=== PATIENT | male | born 1950 | race Caucasian/White ===

== ENCOUNTER 2020-01-12 15:28 | Inpatient (IN) | payer MEDICARE, OTHER, SELFPAY ==
[2020-01-12] VITALS (10 sets, daily range): BP systolic 93–120; BP diastolic 67–75; PULSE 118–130; RESP 15–26; TEMP 36.3–36.6; O2SAT 94–100; BMI 31.8; BMI 31.9
--- NOTE | 2020-01-12 15:05 | EKG12_ITS ---
Test Reason : ADMISSION Blood Pressure : / mmHG Vent. Rate : 130 BPM Atrial Rate : 138 BPM P-R Int : 000 ms QRS Dur : 108 ms QT Int : 328 ms P-R-T Axes : 000 -45 134 degrees QTc Int : 482 ms Accelerated Junctional rhythm with Premature ventricular complexes or Fusion complexes Left axis deviation Incomplete left bundle branch block Nonspecific T wave abnormality Abnormal ECG Confirmed by SRINI OLIVER, NELLIE ([id number]), department editor ROSENDA AGUERO ([id number] on 01/14/2020 10:32:09 AM Referred By: Laura Fernandez Confirmed By:NELLIE MILLIGAN MD
--- NOTE | 2020-01-12 15:27 | ECHOCS_ITS ---
Reason For Study: CHF Procedure This was a 2D Doppler, Color Flow transthoracic echocardiogram. The study was technically difficult. Contrast injection was performed. Exam performed portable in patient room. Left Ventricle Normal LV size. Small mobile thrombus noted in apex. Left ventricular systolic function is normal. The estimated ejection fraction is 15 %. [place] : Akinetic. There is moderate to severe global hypokinesis of the left ventricle. Right Ventricle Normal RV size. Normal systolic function. Atria The left atrium is moderately enlarged. The right atrium is moderately enlarged. Mitral Valve Normal mitral valve. Mild-Moderate (1-2+) eccentric mitral valve insufficiency. Tricuspid Valve Normal tricuspid valve. Moderate (2+) tricuspid valve insufficiency. Pulmonary artery systolic pressure is 53 mmHg. Moderate pulmonary hypertension. Aortic Valve Trisinus/trileaflet aortic valve. Mild focal aortic valve calcification. Pulmonic Valve Normal pulmonic valve. Great Vessels Moderately dilated aortic root. The pulmonary artery is normal size. The inferior vena cava is dilated. Pericardium/Pleural No pericardial effusion. Medication Diluted definity 4.0ml given slow IV push to enhance endocardial definition. MMode/2D Measurements & Calculations LVIDd: 5.6 cm IVSd: 0.79 cm Ao root diam: 5.0 cm LVIDs: 4.9 cm LVPWd: 0.77 cm RVDd: 4.0 cm FS: 13.0 % LAV(MOD-bp): 102.9 ml LVAd ap4: 52.9 cm2 SV(MOD-sp4): 37.0 ml LAV(MOD-bp) Indexed: 42.3 ml/m2 EDV(MOD-sp4): 228.0 ml LAV(MOD-sp2): 95.8 ml EDV(sp4-el): 240.8 ml LAV(MOD-sp4): 103.5 ml LVAs ap4: 48.5 cm2 ESV(MOD-sp4): 191.0 ml ESV(sp4-el): 205.6 ml EF(MOD-sp4): 16.2 % EF(sp4-el): 14.6 % SV(sp4-el): 35.2 ml LA A4 area: 29.5 cm2 LA dimension(2D): 5.0 cm RA A4 area: 25.6 cm2 Time Measurements MV dec time: 0.11 sec Doppler Measurements & Calculations MV E max dusty: 109.0 cm/sec Ao V2 max: 83.8 cm/sec LV V1 max: 51.1 cm/sec Ao max P.8 mmHg LV V1 max P.1 mmHg TR max dusty: 318.8 cm/sec TR max P.6 mmHg Interpretation Summary Normal LV size. Left ventricular systolic function is normal. [place] : Akinetic. Small mobile thrombus noted in apex. The left atrium is moderately enlarged. Pulmonary artery systolic pressure is 53 mmHg. Moderate pulmonary hypertension. The estimated ejection fraction is 15 %. Contrast injection was performed. Ordering Physician: Laura Fernandez Referring Physician: VERÓNICA WOOTEN Performed By: Norma Burrows, RDDUKE, RVT
--- NOTE | 2020-01-12 15:37 | HP.PCM_ITS ---
History of Present Illness Date of Admission: 01/12/20 Chief Complaint: shortness of breath The patient is a 69 year old M with a PMH of hypertension and diabetes who was admitted as transfer from [facility] with a complaint of shortness of breath for 2 days, with associated orthopnea, PND and LE swelling. He said this was the first time of onset of such symptoms, and he had associated exertional shortness of breath, and nausea, but denied any fever, chills, chest pain, palpitations or dizziness, but admitted to a couple of episodes of diarrhea. He did admit to a cough which was productive of clear sputum, but denied any fever or chills. Review of systems otherwise negative. He went to [facility] where albs done showed sodium of 134, bicarb of 19, and pro BNP of 3980. Troponin was 0.11. D-dimer was elevated so a CTA was done which showed no evidence of PE but showed bilateral large pleural effusions and atelectasis. Rapid COVID screen done was negative. EKG showed sinus tachycardia with junctional rhythm patient has no history of heart disease and has no echo on file. He was given IV Lasix and IV ceftriaxone and azithromycin for presumed pneumonia. He was transferred to [facility]. [] Past Medical History Allergies No Known Allergies Allergy (Verified 09/20/15 10:19) Home Medications: Ambulatory Orders Medication Instructions Recorded Aspirin [Adult Low Dose Aspirin EC] 81 mg PO DAILY 09/20/15 Glimepiride [Amaryl] 2 mg PO DAILY 09/20/15 Lisinopril [Zestril] 5 mg PO DAILY 09/20/15 [place]-3 Fatty Acids [Fish Oil] 300 mg PO DAILY 09/20/15 Simvastatin [Zocor] 40 mg PO QHS 09/20/15 metFORMIN HCl [Glucophage] 1,000 mg PO BIDCM 09/20/15 Surgical History: - - knee replacement Psychiatric History: No pertinent psych hx Lives: Spouse/ Significant Other Smoking Status: Former smoker Alcohol: Occasional Drugs: None - *Family History Maternal History Items: Heart Disease, Hypertension Paternal History Items: Heart Disease, Hypertension Review of Systems Constitutional: Denies: Chills, Fever, Malaise, Weakness, Weight Change Eyes: Denies: Blurred vision HEENT: Denies: Head Aches, Sinus Congestion, Sinus Drainage Cardiovascular: Reports: Edema, Orthopnea, Paroxysmal Noc. Dyspnea. Denies: Chest Pain, Chest Pressure, Chest Tightness, Heaviness, Light Headedness, Palpitations Respiratory: Reports: Cough, Shortness of Breath, Shortness of breath at rest, Shortness of breath upon exertion, Sputum production - clear sputum Gastrointestinal: Denies: Abdominal Pain, Nausea, Vomiting Genitourinary: Denies: Dysuria Musculoskeletal: Denies: Joint Pain, Joint Tenderness Skin: Denies: Rash, Wounds Neurological: Denies: Numbness, Tingling, Focal weakness Psychiatric: Denies: Anxiety, Depression, Homicidal Ideations, Suicidal Ideations Hematologic/ Lymphatic: Denies: Easy Bruising, Easy Bleeding VTE Information - Inpt Only VTE Present on Admission: No VTE Pharm Prophylaxis ordered?: Yes - Physical Exam Vitals/I&O's: Vital Signs Temp Pulse Resp BP Pulse Ox 97.8 F 126 H 16 112/68 97 01/12/20 15:28 01/12/20 15:28 01/12/20 15:28 01/12/20 15:28 01/12/20 15:28 Oxygen Flow Rate (L/min) 2 Oxygen Delivery Method Nasal Cannula Weight: 255 lb 1.6 oz Body Mass Index (BMI) 31.8 General: Alert, Oriented x3, Cooperative, No apparent distress HEENT: Atraumatic, PERRLA, EOMI, Normocephalic Oral: Dry Mucosa Neck: Supple, No JVD, Negative Carotid Bruits Lungs: - - decreased breath sounds bibasally and, no wheezes or crackles. Decreased tactile vocal fremitus bilaterally. Cardiovascular: Normal S1, Normal S2, No murmurs, Tachycardic Abdomen: Bowel Sounds Present, Soft, Non Tender, Non-Distended, No Hepato- splenomegaly Extremities: No clubbing, No cyanosis, Capillary Refill Less than 3 Seconds, - - mild +1 LE edema bilaterally. Skin: No rashes, No breakdown Musculoskeletal: No Tenderness to Palpation of Joints or Extremities Lymphatic: No Cervical, Supraclavicular, or Inguinal Adenopathy Neurological: Cranial nerves II-XII grossly intact, Neuro grossly intact, Motor Exam 5/5 strength throughout Psych/Mental Status: Normal Affect, Appropriate, Alert and oriented to time, place, person, mood and affect Current Medications Sodium Chloride () 10 - 40 ml IV UD PRN PRN Reason: SALINE FLUSH Assessment/Plan 69 y/o admitted with a complaitn of shortness of breath. 1. Acute heart failure, EF unknown * Admit to PCU with telemetry * EKG done on admission showed accelerated junctional tachycardia. * Will check CBC, BMP and check troponins x3. Check BNP * Received IV Lasix 20 mg once in [place]. Will start on IV Lasix 40 mg twice daily. * Monitor intake and output. * Fluid restriction to 1500 cc daily. * 2D echo ordered. * 2. Sinus tachycardia * EKG done showed accelerated junctional tachycardia. * Will start metoprolol to help with tachycardia. The patient is in acute heart failure, I think beta-liz will help slow down the heart rate. * Check TSH and magnesium * 3. Type 2 diabetes mellitus: * Continue glimepiride. * Hold metformin. Check A1c. * Insulin sliding scale. * Accu-Cheks AC at bedtime. 4. Hypertension: on lisinopril 5. Hyperlipidemia: On simvastatin 40 nightly. DVT prophylaxis: Lovenox Inpatient E&M: 48588 Init Hosp L3
[2020-01-12 16:01] LABS: Bedside Glucose 244 mg/dL (70-110)
[2020-01-12 16:06] LABS: Hematocrit 46.3 % (40-54); Hemoglobin 14.7 g/dL (13.0-16.5); Mean Corp Hgb Conc 31.7 g/dL (32-36); Mean Corpuscular Hgb 27.1 pg (27.0-32.0); Mean Corpuscular Volume 85.4 fL (80-94); Mean Platelet Vol. 10.3 fl (6.2-12.0); Platelet Count 432 K/mm3 (150-450); RBC Distribution Width CV 14.1 % (11.6-14.6); RBC Distribution Width SD 43.3 fl (35.1-43.9); Red Blood Count 5.42 M/mm3 (4.6-6.2); White Blood Count 9.1 K/mm3 (4.4-11.0)
--- NOTE | 2020-01-12 16:19 | NURSING ---
called updated admitting dx chf
[2020-01-12 16:22] LABS: Anion Gap 11 (5-15); BUN 41 mg/dL (7-18); BUN/Creat Ratio 26.6 RATIO (10-20); Calcium,Total 8.9 mg/dL (8.5-10.1); Chloride 103 mmol/L (98-107); Creatinine, Serum 1.54 mg/dL (0.70-1.30); EST Glomerular Filtration Rate 48 mL/min (>60); Est Glom Filt Rate - Afr Amer 57 mL/min (>60); Estimated Creatinine Clearance 52.58 ml/min; Glucose 266 mg/dL (74-106); Magnesium 2.4 mg/dL (1.6-2.6); Potassium 5.1 mmol/L (3.5-5.1); Sodium Level 135 mmol/L (136-145)
[2020-01-12] MEDS: Insulin Lispro 100 UNIT/ML INSULN.PEN SC ×2 (16:55→21:57)
[2020-01-12] MEDS: 0.9% Saline Lock 10 ML Syringe IV ×2 (16:55→21:24)
[2020-01-12] MEDS: Furosemide 40 MG/4 ML Vial IV (16:55)
[2020-01-12 17:15] LABS: Hemoglobin A1c 7.6 % (4.2-6.3)
[2020-01-12 18:00] LABS: BNP,B-Type NATRIURETIC PEPTIDE 1007.4 pg/mL (0-100)
--- NOTE | 2020-01-12 18:19 | CON.PCM_ITS ---
Reason for Consult Date of Consultation: 01/12/20 Reason for Consultation: Shortness of breath History of Present Illness: The patient is a 69 year old M with a past medical history significant for hypertension and diabetes mellitus. He was initially admitted to [facility]. He had been short of breath he says for a few weeks but appears to have worsened over the last 2 to 4 days. He denied any fever diaphoresis chills near syncope or syncope and has not had any palpitations. He has had orthopnea as well as pedal edema. He has also had some paroxysmal nocturnal dyspnea. At the outside hospital he was evaluated with natruretic peptide level which was elevated as well as troponin which was mildly elevated. He also had a CTA done which demonstrated bilateral pleural effusions. A rapid COVID test was negative. He was treated with intravenous Lasix as well as ceftriaxone and azithromycin. He was transferred to [facility] for further evaluation and management. At this particular time he says that he is breathing better continues to deny any chest pain. He has had no previous problems with clotting disorders. [] Past Medical History Allergies/Adverse Reactions: Allergies No Known Allergies Allergy (Verified 09/20/15 10:19) Home Medications: Ambulatory Orders Medication Instructions Recorded Aspirin [Adult Low Dose Aspirin EC] 81 mg PO DAILY 09/20/15 Glimepiride [Amaryl] 2 mg PO DAILY 09/20/15 Lisinopril [Zestril] 5 mg PO DAILY 09/20/15 [place]-3 Fatty Acids [Fish Oil] 300 mg PO DAILY 09/20/15 Simvastatin [Zocor] 40 mg PO QHS 09/20/15 metFORMIN HCl [Glucophage] 1,000 mg PO BIDCM 09/20/15 Surgical History: - - knee replacement Psychiatric History: No pertinent psych hx - *Family History Maternal History Items: Heart Disease, Hypertension Paternal History Items: Heart Disease, Hypertension Lives: Spouse/ Significant Other Smoking Status: Former smoker Alcohol: Occasional Drugs: None Review of Systems - Review of Systems General: Reports: Fatigue, Weakness. Denies: Fever, Night Sweats HEENT: Denies: Vision Change Cardiovascular: Reports: Shortness of Breath, Shortness of Breath at Rest, Shortness of Breath with Exertion, Orthopnea, PND, Peripheral Edema. Denies: Chest Discomfort, Palpitations, Lightheadedness, Dizziness, Near Syncope, Syncope Respiratory: Denies: Cough, Sputum Production, Hemoptysis Gastrointestinal: Denies: Hematemesis, Hematochezia, Melena Genitourinary: Denies: Dysuria, Hematuria Muscoloskeletal: Denies: Myalgias Skin: Denies: Rash Neurological: Denies: Dizziness Psychiatric: Denies: Anxiety Endocrine: Denies: Excessive Sweating Hematologic/ Lymphatic: Denies: Anemia Subjectve: Pleasant gentleman in no distress. Mildly tachypneic Objective: Vital Signs Temp Pulse Resp BP Pulse Ox 98 F 129 H 16 103/73 97 01/12/20 17:00 01/12/20 17:00 01/12/20 17:00 01/12/20 17:00 01/12/20 17:00 Oxygen Flow Rate (L/min) 2 Oxygen Delivery Method Nasal Cannula Weight: 255 lb 1.6 oz Body Mass Index (BMI) 31.8 General: Awake, Alert, Oriented x 3 HEENT: PERRL, EOMI, Sclera Non Icteric Oral: Moist Mucosa Neck: Supple, Good ROM, No Lymph Node Enlargement, Positive JVD Lungs: Diminished [place] Bases Cardiovascular: Regular Rhythm, Normal S1, Normal S2, No Rubs, No Gallops Murmur Murmur: Grade 2/6, Holosystolic, [place] Vascular: No Carotid Bruits, Normal Femoral Pulses, Normal Radial Pulses, Normal Dorsalis Pedal Pulse, Normal Posterior Tibial Pulses Abdomen: Bowel Sounds Present, Soft, Non Tender, No HSM, No Organomegaly Extremities: No Cyanosis, No Clubbing, Bilateral Edema +2 Musculoskeletal: No Erythema Skin: No Rashes Lymphatic: No Lymph Node Enlargement Neurological: No Focal Motor or Sensory Deficit Psych/Mental Status: Appropriate 01/12/20 15:52: WBC 9.1, RBC 5.42, Hgb 14.7, Hct 46.3, MCV 85.4, MCH 27.1, MCHC 31.7 L, Plt Count 432, MPV 10.3 01/12/20 15:52: Sodium 135 L, Potassium 5.1, Chloride 103, Carbon Dioxide 21.0, Anion Gap 11, BUN 41 H, Creatinine 1.54 H, Est GFR (MDRD) Af Amer 57 L, Est GFR (MDRD) Non-Af 48 L, BUN/Creatinine Ratio 26.6 H, Glucose 266 H, Calcium 8.9, Magnesium 2.4, Troponin I 0.137 H 01/12/20 15:52: Hemoglobin A1c 7.6 H 01/12/20 15:52: B-Natriuretic Peptide 1007.4 H Rhythm: EKG: Atrial flutter with 2-1 block at 130 bpm ECHO: Severe left ventricular systolic dysfunction with global reduction in ejection fraction estimated to be 15%. Apical thrombus cannot be completely excluded. Left atrial enlargement is present. Assessment/Plan 1. Acute systolic heart failure * Patient presents with shortness of breath, orthopnea, paroxysmal nocturnal dyspnea and laboratory tests confirmatory of the above. His echocardiogram also corroborates this. * Will recommend to continue with IV Lasix * Will start beta-liz with carvedilol 3.125 mg twice a day and titrate upwards * Will add ERIK inhibitor as tolerated * Will eventually need a left heart catheterization to exclude coronary obstruction * The above is likely tachycardia mediated from his cardiac arrhythmias * Would likely benefit from Entresto and spironolactone later on 2. Atrial flutter * Patient appears to have atypical atrial flutter versus atrial tachycardia with block * Will recommend anticoagulation with Lovenox at this time * Patient has an elevated chads score and would need long-term anticoagulation * 3. Hypertension * Continue with ERIK inhibitor and beta-liz as tolerated * 4. Left ventricular systolic dysfunction * Patient has severe low ventricular systolic dysfunction. The above is global with severe apical hypokinesis to akinesis. * A small thrombus is noted in the apex and patient appears to have slow flow with the thrombogenic phenomenon * Will continue with the measures as noted above and would also likely need long-term anticoagulation * Depending on the improvement in the left ventricular systolic function further measures will need to be undertaken such as primary defibrillator implantation after appropriate therapy for at least 90 days. As per guideline directed medical care. * 5. Secondary risk factor modification * Patient will continue with high intensity statin. * * Above discussed with patient and the hospitalist. * * Thank you for allowing me to participate in the care of your patient. Please don't hesitate to call if any issues arise.
[2020-01-12] MEDS: Enoxaparin 100 MG/ML Syringe SC (18:45)
[2020-01-12] MEDS: Carvedilol 3.125 MG TABLET PO (18:45)
[2020-01-12] MEDS: Ondansetron 4 MG/2 ML Vial IV (21:29)
[2020-01-12] MEDS: Atorvastatin Calcium 20 MG Tablet PO (21:58)
[2020-01-12 22:05] LABS: Bedside Glucose 224 mg/dL (70-110)
[2020-01-13] VITALS (29 sets, daily range): BP systolic 40–114; BP diastolic 18–89; PULSE 0–131; RESP 9–37; TEMP 35.1–36.8; O2SAT 51–100
[2020-01-13] MEDS: Carvedilol 3.125 MG TABLET PO (01:16)
[2020-01-13] MEDS: Amiodarone 360 MG in Dextrose 5% Viaflo Bag 192.8 ML 33.3 MG CONT INF (03:42)
[2020-01-13 05:01] LABS: Bedside Glucose 221 mg/dL (70-110)
--- NOTE | 2020-01-13 05:47 | CCHN_ITS ---
Hospitalist Note Was tachycardic overnight. Given an additional dose of carvedilol (3.125), but was still tachy (afib w RVR). Cardiology contacted and patient started on amio gtt and HR improved. Nursing concerned as pt did not look well. I saw patient and he was mouth breathing. Instructed pt to breathe through his nose and out his mouth. Patient was alert. States he has had no sick contacts. Only contacts he has had has been his and neighbor. Does not go out. However, he has had vague GI symptoms over the past week. He tested negative for COVID-[address] [place] reviewed and showed moderate bilateral pleural effusions and atelectasis v infiltrate. I will repeat COVID-19 testing and addition COVID adjacent testing (D-dimer, etc.). Start CTX for possible pneumonia (no azithro/lvq as he is on amio), check urinary antigens for strep and legionella. Patient will be sent to the COVID Cohort unit.
--- NOTE | 2020-01-13 06:20 | NURSING ---
Report called to Moise Correa RN in ICU. Pt transferred to ICU5 via this RN and SG Santos.
[2020-01-13 07:10] LABS: ALB/GLOB Ratio 0.9 RATIO (0.9-2.4); AST(SGOT) 304 U/L (15-37); Alanine Aminotransfer ALT/SGPT 310 U/L (16-61); Albumin, Serum 3.6 g/dL (3.2-5.0); Alkaline Phosphatase 112 U/L (45-117); Anion Gap 14 (5-15); BUN 53 mg/dL (7-18); BUN/Creat Ratio 25.5 RATIO (10-20); Chloride 101 mmol/L (98-107); Creatinine, Serum 2.08 mg/dL (0.70-1.30); EST Glomerular Filtration Rate 34 mL/min (>60); Est Glom Filt Rate - Afr Amer 41 mL/min (>60); Estimated Creatinine Clearance 38.93 ml/min; Globulin 3.8 g/dL (2.2-4.2); Glucose 211 mg/dL (74-106); LDH 539 U/L (87-241); Potassium 5.9 mmol/L (3.5-5.1); Protein, Total 7.4 g/dL (6.4-8.2); Sodium Level 133 mmol/L (136-145)
[2020-01-13] MEDS: Atropine Sulfate 1 MG/10 ML Syringe IV (07:18)
--- NOTE | 2020-01-13 07:18 | PN_ITS ---
Vitals/I&O's: Vital Signs Temp Pulse Resp BP Pulse Ox 98.3 F 107 H 21 H 88/71 L 100 01/13/20 04:31 01/13/20 05:31 01/13/20 05:31 01/13/20 05:31 01/13/20 05:31 Oxygen Flow Rate (L/min) 3 Oxygen Delivery Method Nasal Cannula Weight: 114.7 kg Body Mass Index (BMI) 31.8 Intake and Output for Last 24 Hours 01/11/20 01/12/20 01/13/20 23:59 23:59 23:59 Intake Total 480 / 480 141.30 / 141.30 Output Total 830 / 830 Balance -350 / -350 141.30 / 141.30 Laboratory Results 01/12/20 15:52: WBC 9.1, RBC 5.42, Hgb 14.7, Hct 46.3, MCV 85.4, MCH 27.1, MCHC 31.7 L, RDW Std Deviation 43.3, RDW Coeff of [place] 14.1, Plt Count 432, MPV 10.3 01/12/20 15:52: Sodium 135 L, Potassium 5.1, Chloride 103, Carbon Dioxide 21.0, Anion Gap 11, BUN 41 H, Creatinine 1.54 H, Estim Creat Clear Calc 52.58, Est GFR (MDRD) Af Amer 57 L, Est GFR (MDRD) Non-Af 48 L, BUN/Creatinine Ratio 26.6 H, Glucose 266 H, Calcium 8.9, Magnesium 2.4, Troponin I 0.137 H 01/12/20 15:52: TSH 0.40 01/12/20 15:52: Hemoglobin A1c 7.6 H 01/12/20 15:52: B-Natriuretic Peptide 1007.4 H 01/12/20 15:53: POC Glucose 244 H 01/12/20 18:36: Troponin I 0.141 H 01/12/20 21:22: Troponin I 0.156 H 01/12/20 21:56: POC Glucose 224 H 01/13/20 04:48: POC Glucose 221 H 01/13/20 05:35: Sodium 133 L, Potassium 5.9 H, Chloride 101, Carbon Dioxide 18.0 L, Anion Gap 14, BUN 53 H, Creatinine 2.08 H, Estim Creat Clear Calc 38.93, Est GFR (MDRD) Af Amer 41 L, Est GFR (MDRD) Non-Af 34 L, BUN/Creatinine Ratio 25.5 H , Glucose 211 H, Calcium 9.0, Total Bilirubin 1.00, AST 304 H, ALT 310 H, Alkaline Phosphatase 112, Lactate Dehydrogenase 539 H, Total Protein 7.4, Albumin 3.6, Globulin 3.8, Albumin/Globulin Ratio 0.9 Current Medications Albuterol Sulfate (Ventolin Aerosols) 2.5 mg INHALATION Q2H PRN PRN PRN Reason: SOB/Wheezing Aspirin (Ecotrin) 81 mg PO DAILY@0800 [facility] Atorvastatin Calcium (Lipitor) 20 mg PO QHS [facility] Last Admin: 01/12/20 21:58 Dose: 20 mg Documented by: Carvedilol (Coreg) 3.125 mg PO BID [facility] Last Admin: 01/12/20 18:45 Dose: 3.125 mg Documented by: Dextrose (D50w Syringe) 0 gm IV X1 PRN; Protocol PRN Reason: Hypoglycemia Enoxaparin Sodium (Lovenox) 100 mg SC Q12@0600,1800 [facility] Last Admin: 01/12/20 18:45 Dose: 100 mg Documented by: Furosemide (Lasix) 40 mg IV BID@1000,1800 [facility] Last Admin: 01/12/20 16:55 Dose: 40 mg Documented by: Glimepiride (Amaryl) 2 mg PO DAILY@0800 [facility] Glucagon () 1 mg IM .X1 PRN PRN Reason: Hypoglycemia Amiodarone HCl 360 mg/ (Dextrose) 200 mls @ 33.333 mls/hr CONT INF .Q6H [facility] Stop: 01/13/20 08:54 Last Infusion: 01/13/20 05:31 Dose: 1 mg/min, 33.3 mls/hr Documented by: Amiodarone HCl 360 mg/ (Dextrose) 200 mls @ 16.667 mls/hr CONT INF .Q12H [facility] Stop: 01/14/20 02:59 Ceftriaxone Sodium (Rocephin) 1 gm in 50 mls @ 100 mls/hr IV Q24 [facility] Norepinephrine Bitartrate 8 mg (/ Sodium Chloride) 250 mls @ 9.375 mls/hr CONT INF .[id number] [facility]; Protocol Insulin Human Lispro (Humalog Kwikpen (Bkc)) 0 unit SC ACHS JONATHAN; Protocol Last Admin: 01/12/20 21:57 Dose: 4 units Documented by: Lisinopril (Zestril) 5 mg PO DAILY JONATHAN Nitroglycerin (Nitrostat) 0.4 mg SUBLINGUAL Q5M PRN PRN Reason: CARDIAC/CHEST PAIN Sodium Chloride () 10 - 40 ml IV UD PRN PRN Reason: SALINE FLUSH Last Admin: 01/12/20 21:24 Dose: 10 ml Documented by: STROKE Vital Signs/Narrative: Vital Signs Temp Pulse Resp BP BP Pulse Ox 01/13/20 05:31 107 H 21 H 88/71 L 100 01/13/20 05:16 96 23 H 91/68 100 01/13/20 05:01 98 20 H 90/63 100 01/13/20 04:49 107 H 30 H 86/72 L 100 01/13/20 04:45 118 H 19 H 66/55 L 100 01/13/20 04:31 98.3 F 101 H 15 84/56 L 94 01/13/20 04:15 113 H 28 H 89/71 L 98 01/13/20 04:05 91/73 01/13/20 04:01 104 H 37 H 73/58 L 98 01/13/20 03:46 97 14 92/81 H 99 01/13/20 03:38 106 H 34 H 84/72 L 99 01/13/20 03:25 97.4 F L 128 H 32 H 100/79 98 01/13/20 03:23 97.4 F L 129 H 24 H 100/79 100 Medical Necessity - Tobacco Use Smoking Status: Former smoker
[2020-01-13 07:58] LABS: Absolute Lymphocyte Count 1.31 X10^3/uL (0.83-4.51); Absolute Neutrophil Count 7.6 X10^3/uL (2.0-7.7); Basophil# 0.02 X10^3/uL; Basophil% 0.2 % (0-1); Hematocrit 47.6 % (40-54); Hemoglobin 15.4 g/dL (13.0-16.5); Lymphocyte # 1.31 X10^3/ul (4.0); Lymphocyte % 13.8 % (19-41); Mean Corp Hgb Conc 32.4 g/dL (32-36); Mean Corpuscular Hgb 27.3 pg (27.0-32.0); Mean Corpuscular Volume 84.2 fL (80-94); Mean Platelet Vol. 10.9 fl (6.2-12.0); Monocyte# 0.52 X10^3/uL; Monocyte% 5.5 % (0-10); NRBC Flagged by Analyzer 0 % (0-5); Neutrophil # 7.59 X10^3/uL (2.7-7.7); Neutrophil % 80.2 % (47-70); Platelet Count 352 K/mm3 (150-450); RBC Distribution Width CV 14.5 % (11.6-14.6); RBC Distribution Width SD 43.5 fl (35.1-43.9); Red Blood Count 5.65 M/mm3 (4.6-6.2); White Blood Count 9.5 K/mm3 (4.4-11.0)
--- NOTE | 2020-01-13 07:58 | PCM.CODE.B ---
Code Blue Summary Patient arrived to the intensive care unit at approximately 6 AM. At that time, patient was reportedly conversing with the nurses and doing well. Patient was confirmed a full CODE STATUS. I was not consulted at that time. Patient's clinical status including imaging and laboratory results were not able to be reviewed prior to acute event. At approximately 6:53 AM, patient was noted to have bradycardia. I was called emergently into the room. Patient received 1 dose of atropine and 3 compressions. Amiodarone was discontinued. An ABG was obtained showing compensated metabolic acidosis. Patient was given a dose of bicarbonate and was starting to have some spontaneous movements. There were occasional pacer spikes reported by telemetry, but no pacer is noted on brief physical exam. Patient was monitored clinically. There was some concern for hypoventilation, so BiPAP was initially prepared. At 7:23 AM, the patient once again developed bradycardia and pulses were lost. Patient's family was updated by staff and is currently on the way. CPR was initiated. Patient received a total of 5 doses of epinephrine, 2 doses of atropine and 3 A of bicarb. Attempts to intubate were complicated secondary to a grade 0 view with direct laryngoscopy. 2 attempts were esophageal. [place] scope was obtained and patient was intubated on first attempt. Patient did receive 8 to 10 minutes of endotracheal ventilation prior to declaring time of at 7:40 AM. Procedures were complicated secondary to COVID-19 precautions. Patient reportedly had had a negative test outside, but this has been reordered by the hospitalist overnight. Critical care time of 47 minutes
--- NOTE | 2020-01-13 08:06 | CON.PCM_ITS ---
Problem List (1) Cardiac arrest due to underlying cardiac condition Status: Acute Reason for Consult Date of Consultation: 01/13/20 History of Present Illness: Patient arrived to the intensive care unit at approximately 6 AM. At that time, patient was reportedly conversing with the nurses and doing well. Patient was confirmed a full CODE STATUS. I was not consulted at that time. Patient's clinical status including imaging and laboratory results were not able to be reviewed prior to acute event. At approximately 6:53 AM, patient was noted to have bradycardia. I was called emergently into the room. Patient received 1 dose of atropine and 3 compressions. Amiodarone was discontinued. An ABG was obtained showing compensated metabolic acidosis. Patient was given a dose of bicarbonate and was starting to have some spontaneous movements. There were occasional pacer spikes reported by telemetry, but no pacer is noted on brief physical exam. Patient was monitored clinically. There was some concern for hypoventilation, so BiPAP was initially prepared. At 7:23 AM, the patient once again developed bradycardia and pulses were lost. Patient's family was updated by staff and is currently on the way. CPR was initiated. Patient received a total of 5 doses of epinephrine, 2 doses of atropine and 3 A of bicarb. Attempts to intubate were complicated secondary to a grade 0 view with direct laryngoscopy. 2 attempts were esophageal. [place] scope was obtained and patient was intubated on first attempt. Patient did receive 8 to 10 minutes of endotracheal ventilation prior to declaring time of at 7:40 AM. Procedures were complicated secondary to COVID-19 precautions. Patient reportedly had had a negative test outside, but this has been reordered by the hospitalist overnight. Critical care time of 47 minutes Past Medical History Allergies No Known Allergies Allergy (Verified 09/20/15 10:19) Home Medications: Ambulatory Orders Medication Instructions Recorded Aspirin [Adult Low Dose Aspirin EC] 81 mg PO DAILY 09/20/15 Glimepiride [Amaryl] 2 mg PO DAILY 09/20/15 Lisinopril [Zestril] 5 mg PO DAILY 09/20/15 [place]-3 Fatty Acids [Fish Oil] 300 mg PO DAILY 09/20/15 Simvastatin [Zocor] 40 mg PO QHS 09/20/15 metFORMIN HCl [Glucophage] 1,000 mg PO BIDCM 09/20/15 Surgical History: - - knee replacement Psychiatric History: No pertinent psych hx Lives: Spouse/ Significant Other Smoking Status: Former smoker Alcohol: Occasional Drugs: None - *Family History Maternal History Items: Heart Disease, Hypertension Paternal History Items: Heart Disease, Hypertension Patient Problems: Active and Suspected Problems Cardiac arrest due to underlying cardiac condition (Acute) - Physical Exam Vitals/I&O's: Vital Signs Temp Pulse Resp BP Pulse Ox 36.8 C 93 12 88/73 L 90 01/13/20 04:31 01/13/20 05:46 01/13/20 05:46 01/13/20 05:46 01/13/20 07:20 Oxygen Flow Rate (L/min) 3 Oxygen Delivery Method Nasal Cannula Weight: 114.7 kg Body Mass Index (BMI) 31.8 Intake and Output for Last 24 Hours 01/11/20 01/12/20 01/13/20 23:59 23:59 23:59 Intake Total 480 / 480 149.63 / 149.63 Output Total 830 / 830 Balance -350 / -350 149.63 / 149.63 Laboratory Results 01/12/20 15:52: WBC 9.1, RBC 5.42, Hgb 14.7, Hct 46.3, MCV 85.4, MCH 27.1, MCHC 31.7 L, RDW Std Deviation 43.3, RDW Coeff of Cordell 14.1, Plt Count 432, MPV 10.3 01/12/20 15:52: Sodium 135 L, Potassium 5.1, Chloride 103, Carbon Dioxide 21.0, Anion Gap 11, BUN 41 H, Creatinine 1.54 H, Estim Creat Clear Calc 52.58, Est GFR (MDRD) Af Amer 57 L, Est GFR (MDRD) Non-Af 48 L, BUN/Creatinine Ratio 26.6 H, Glucose 266 H, Calcium 8.9, Magnesium 2.4, Troponin I 0.137 H 01/12/20 15:52: TSH 0.40 01/12/20 15:52: Hemoglobin A1c 7.6 H 01/12/20 15:52: B-Natriuretic Peptide 1007.4 H 01/12/20 15:53: POC Glucose 244 H 01/12/20 18:36: Troponin I 0.141 H 01/12/20 21:22: Troponin I 0.156 H 01/12/20 21:56: POC Glucose 224 H 01/13/20 04:48: POC Glucose 221 H 01/13/20 05:35: WBC 9.5, RBC 5.65, Hgb 15.4, Hct 47.6, MCV 84.2, MCH 27.3, MCHC 32.4, RDW Std Deviation 43.5, RDW Coeff of Cordell 14.5, Plt Count 352, MPV 10.9, Immature Gran % (Auto) 0.300, Neut % (Auto) 80.2 H, Lymph % (Auto) 13.8 L, [place] % (Auto) 5.5, Eos % (Auto) 0.0, Baso % (Auto) 0.2, Absolute Neuts (auto) 7.6, Absolute Lymphs (auto) 1.31, Nucleated RBC % 0 01/13/20 05:35: Sodium 133 L, Potassium 5.9 H, Chloride 101, Carbon Dioxide 18.0 L, Anion Gap 14, BUN 53 H, Creatinine 2.08 H, Estim Creat Clear Calc 38.93, Est GFR (MDRD) Af Amer 41 L, Est GFR (MDRD) Non-Af 34 L, BUN/Creatinine Ratio 25.5 H, Glucose 211 H, Calcium 9.0, Total Bilirubin 1.00, AST 304 H, ALT 310 H, Alkaline Phosphatase 112, Lactate Dehydrogenase 539 H, Total Protein 7.4, Albumin 3.6, Globulin 3.8, Albumin/Globulin Ratio 0.9 Current Medications Albuterol Sulfate (Ventolin Aerosols) 2.5 mg INHALATION Q2H PRN PRN PRN Reason: SOB/Wheezing Aspirin (Ecotrin) 81 mg PO DAILY@0800 [facility] Atorvastatin Calcium (Lipitor) 20 mg PO QHS [facility] Last Admin: 01/12/20 21:58 Dose: 20 mg Documented by: Carvedilol (Coreg) 3.125 mg PO BID [facility] Last Admin: 01/12/20 18:45 Dose: 3.125 mg Documented by: Dextrose (D50w Syringe) 0 gm IV X1 PRN; Protocol PRN Reason: Hypoglycemia Enoxaparin Sodium (Lovenox) 100 mg SC Q12@0600,1800 [facility] Last Admin: 01/12/20 18:45 Dose: 100 mg Documented by: Glimepiride (Amaryl) 2 mg PO DAILY@0800 [facility] Glucagon () 1 mg IM .X1 PRN PRN Reason: Hypoglycemia Amiodarone HCl 360 mg/ (Dextrose) 200 mls @ 33.333 mls/hr CONT INF .Q6H [facility] Stop: 01/13/20 08:54 Last Infusion: 01/13/20 05:46 Dose: 1 mg/min, 33.3 mls/hr Documented by: Amiodarone HCl 360 mg/ (Dextrose) 200 mls @ 16.667 mls/hr CONT INF .Q12H [facility] Stop: 01/14/20 02:59 Ceftriaxone Sodium (Rocephin) 1 gm in 50 mls @ 100 mls/hr IV Q24 [facility] Norepinephrine Bitartrate 8 mg (/ Sodium Chloride) 250 mls @ 9.375 mls/hr CONT INF .[id number] [facility]; Protocol Insulin Human Lispro (Humalog Kwikpen (Bkc)) 0 unit SC ACHS [facility]; Protocol Last Admin: 01/12/20 21:57 Dose: 4 units Documented by: Nitroglycerin (Nitrostat) 0.4 mg SUBLINGUAL Q5M PRN PRN Reason: CARDIAC/CHEST PAIN Sodium Chloride () 10 - 40 ml IV UD PRN PRN Reason: SALINE FLUSH Last Admin: 01/12/20 21:24 Dose: 10 ml Documented by: Assessment/Plan Active and Suspected Problems Cardiac arrest due to underlying cardiac condition (Acute) 9xxxx: [id number] Critical care first hour
[2020-01-13 08:55] LABS: Base Excess -14 mmol/L (-2 to +2); Bicarbonate 11.8 mmol/L (22-26); PO2 109 mmHG (75-100); SO2 98 % (95-99); Total Carbon Dioxide 13 mmol/L; pCO2 23.1 mmHg (35-45); pH 7.32 (7.35-7.45)
[2020-01-13 09:06] LABS: Allen Test POS; Blood Gas Specimen Type ART; O2 Delivery Device Nasal Can
[2020-01-13 09:08] LABS: Time Given 706
[2020-01-13 09:09] LABS: SITE L RADIAL
--- NOTE | 2020-01-13 09:11 | NURSING ---
0715 notified by eliceo schultz RN that she needed to come in 0745 arrived was taken to patient bedside 0813 [facility] notified of patient body released [id number] services advisor notified released body [id number] [facility] [phone]
--- NOTE | 2020-01-13 09:16 | PCM.DEATH ---
Preliminary Cause of cardiac arrest due to acute systolic heart failure and LV clot Date of Admission: 01/12/20 Date of : 01/13/20 - Principle Diagnosis cardiac arrest acute systolic heart failure left ventricular clot bradycardia afib with RVR Problem List: Active and Suspected Problems Cardiac arrest due to underlying cardiac condition (Acute) Hospital Course The patient is a 69 year old M with a PMH of hypertension and diabetes who was admitted as transfer from [facility] with a complaint of shortness of breath for 2 days, with associated orthopnea, PND and LE swelling. He said this was the first time of onset of such symptoms, and he had associated exertional shortness of breath, and nausea, but denied any fever, chills, chest pain, palpitations or dizziness, but admitted to a couple of episodes of diarrhea. He did admit to a cough which was productive of clear sputum, but denied any fever or chills. Review of systems otherwise negative. He had never been told he had any heart issues though he mentioned a strong family history of heart disease with his father and brothers dying in their 50s and 60s from sudden heart attacks. He went to [facility] where labs done showed sodium of 134, bicarb of 19, and pro BNP of 3980. Troponin was 0.11. D-dimer was elevated so a CTA was done which showed no evidence of PE but showed bilateral large pleural effusions and atelectasis. Rapid COVID screen done was negative. EKG showed sinus tachycardia with junctional rhythm patient has no history of heart disease and has no echo on file. He was given IV Lasix and IV ceftriaxone and azithromycin for presumed pneumonia. He was transferred to [facility]. On arrival, vitals were significant for pulse rate of 129 with respiratory rate of 24 and temperature of 97.6. Blood pressure was 96/74 he was saturating well on 2 L of oxygen. Chemistry done showed creatinine of 1.54 with sodium of 135 and potassium of 5.1. A1c was 7.6 and initial troponin was 0.156. BNP done was 1007. He was diagnosed with acute systolic heart failure and started on IV Lasix 40 mg twice daily. Fluid was restricted to 1500 cc daily and he was to have strict intake and output chart. Troponins were cycled. 2D echo was ordered showed EF of 15% with a normal left ventricular size and akinetic apex with moderate to severe global hypokinesis of the left ventricle. Left atrium was also moderately enlarged and right atrium was moderately enlarged. RVSP was 53 mmHg indicating moderate pulmonary hypertension. EKG done on admission showed tachycardia with an accelerated junctional rhythm, but after review by cardiology, it was thought that patient most likely had atrial flutter and he was started on carvedilol.Plan per cardiology is that patient will eventually need left heart cath to exclude coronary obstruction and depending on improvement in left ventricular systolic function with medical management, patient will be considered for primary defibrillator after appropriate therapy for at least 90 days as per guideline directed medical care. Overnight however patient became more tachycardic and was not responding to doses of beta-blockers. He was therefore started on amiodarone drip. He was eventually transferred to the ICU. Patient subsequently became bradycardic and a CODE BLUE was called. He was transferred to the ICU at approximately 6 AM on 01/13/2020 at which point he was reportedly conversing with the nurses and doing well. At approximately 6:53 AM, patient was noted to be bradycardic and a CODE BLUE was called. He underwent resuscitation per ACLS protocol. He received 1 dose of atropine and 3 compressions. Amiodarone was discontinued. ABG done showed compensated metabolic acidosis. Patient was given a dose of bicarb and at that point he was noted to have some spontaneous movement. BiPAP was initially prepared due to concerns for hypoventilation. At 7:23 AM, patient was noted to have developed bradycardia again and went into asystole. CODE BLUE was called again and CPR was initiated. Patient received 5 doses of epinephrine, 2 doses of atropine and 3 A of bicarb. Attempts were made to intubate patient with direct laryngoscopy by sanitation worker cleaning machinery but both attempts were esophageal. A glide scope was obtained and patient was intubated successfully on first attempt. He did receive 8 to 10 minutes of endotracheal ventilation prior to declaring time of at 7:40 AM. Patient was declared at 7:40 AM. Hospitalist had an extensive conversation with patient's when she arrived. was informed that patient's echocardiogram showed a very weak heart with EF of 15% and a left ventricular clot which indicated significant cardiac pathology which was likely not of acute onset and had been going on for some time. Patient's stated that he had had no previous history of heart disease though his family was noted for cardiac deaths in his brothers and father who had in their 50s and 60s from sudden heart attacks. did not have any questions at that point and says she was happy that patient did not suffer. expressed gratitude for the care that patient had received from medical team, and stated that she felt that nothing else could have been done for him since his heart was found to be very weak. Hospitalist consoled and informed her that medical team would be available to answer any questions or concerns that she or the family had. Inpatient E&M: [id number] Disch Hosp
--- NOTE | 2020-01-13 09:17 | NURSING ---
0648 Pt change in LOC. Pupils 4-5mm fixed, slow to answer questions, RASS -2, Staring off in space. 0650 Heart rate brenda down to [address] Montero called to bedside. Patient assessed and order for Atropine received. Patient coded at 0653, see code blue intervention.
== END 2020-01-13 10:00 | DRG 291 ==
LOC: PCU 01-13 05:42 → ICU 01-13 05:55
PROVIDERS: Admitting Provider Student in an Organized Health Care Education/Training Program; PCP Family Medicine; Referring Provider Student in an Organized Health Care Education/Training Program; Visit Provider Internal Medicine
DX: I11.0 Hypertensive heart disease with heart failure (principal); I50.21 Acute systolic (congestive) heart failure; J18.9 Pneumonia, unspecified organism; I47.1 Supraventricular tachycardia; I48.92 Unspecified atrial flutter; E87.2 Acidosis; I46.2 Cardiac arrest due to underlying cardiac condition; Z87.891 Personal history of nicotine dependence; E11.9 Type 2 diabetes mellitus without complications; E78.5 Hyperlipidemia, unspecified; I48.91 Unspecified atrial fibrillation; R00.1 Bradycardia, unspecified; I51.3 Intracardiac thrombosis, not elsewhere classified
CPT/HCPCS: 31500; 36415; 36600; 80048; 80053; 82803; 82962; 83036; 83615; 83735; 83880; 84443; 84484; 85025; 85027; 87040; 87635; 92950; 93005; 93306; G2023; Q9957; A4216; C8929; J1940; J2405; U0002